=== PATIENT | female | born 1965 | race Caucasian/White ===

== ENCOUNTER → 2019-05-03 | Outpatient (REF) | payer BC | LOC: M SFHCLERA 09:21 | PROVIDERS: ATTEND Nurse Practitioner Family | DX: Z13.220 Encounter for screening for lipoid disorders (principal); Z13.21 Encounter for screening for nutritional disorder; Z13.1 Encounter for screening for diabetes mellitus; R03.0 Elevated blood-pressure reading, without diagnosis of hypertension ==